=== PATIENT | female | born 1965 | race Caucasian/White ===

== ENCOUNTER → 2016-09-19 | Outpatient (CLI) | payer BC ==
[~2016-09-19] MED LIST: CIPRO500 MG PO; CIPROFLOXACIN500 M1 PO; FLAGYL500 MG PO; METRONIDAZOLE500 MG PO; PERCOCET 5/31 TABLET PO; PROMETHAZINE HC50 M1 PO; PROTONIX40 MG PO; ULTRACET1 TABLET PO; ULTRAM50 MG PO
== END | disposition home or self-care (01) ==
LOC: RAD 17:14
DX: M79.605 Pain in left leg (principal); M79.89 Other specified soft tissue disorders; M25.562 Pain in left knee
CPT/HCPCS: 93971